=== PATIENT | female | born 1930 | race Hispanic/Latino ===

== ENCOUNTER → 2018-10-24 | Outpatient (CLI) | payer MEDICARE ==
--- NOTE | 2018-10-24 12:26 | Diagnostic Imaging Report ---
WRIST COMPLETE RIGHT - 3 views HISTORY: Pain COMPARISON: None available. FINDINGS: See impression. IMPRESSION: Nondisplaced intra-articular distal radial fracture with minimal dorsal angulation. Signed by: Dr. Adan Steele MD on 10/24/2018 12:23 PM
== END ==
LOC: RAD 10:35
PROVIDERS: ATTEND Family Medicine
DX: M25.531 Pain in right wrist (principal); T14.90XA Injury, unspecified, initial encounter

== ENCOUNTER 2019-01-02 11:44 | Outpatient (RCR) | payer MEDICARE ==
[2019-01-03] MEDS ORDERED: SODIUM CHLORIDE 0.9% 50ML 50 ML ONE (00:03)
[2019-01-03] MEDS ORDERED: IOPAMIDOL 370 MG/ML 200 ML INFUS..BTL INJ ONE (00:03)
== END 2019-01-03 ==
LOC: OT 11:44
PROVIDERS: ATTEND Specialist
DX: S52.501D Unspecified fracture of the lower end of right radius, subsequent encounter for closed fracture with routine healing (principal); M25.531 Pain in right wrist; M25.631 Stiffness of right wrist, not elsewhere classified; R53.1 Weakness
CPT/HCPCS: 97022 ×2; 97110 ×2; 97165; Q9967

== ENCOUNTER 2019-01-23 13:41 | Outpatient (RCR) | payer MEDICARE | END 2019-02-03 | LOC: OT 13:41 | PROVIDERS: ATTEND Specialist | DX: S52.531A Colles' fracture of right radius, initial encounter for closed fracture (principal) ==